=== PATIENT | female | born 1985 | race Caucasian/White ===

== ENCOUNTER 2016-06-04 09:04 | Inpatient (IN) ==
[2016-06-04 06:20] LABS: Basophils % 0.3 %; Eosinophils # 0.1 K/mcL (0.0-0.6); Eosinophils % 0.7 %; Hematocrit 37.3 % (35.3-44.9); Hemoglobin 12.4 g/dL (11.5-15.4); Lymphocytes # 2.1 K/mcL (0.6-4.6); Lymphocytes % 18.7 %; Mean Corpuscular HGB Conc 33.2 g/dL (31.6-35.5); Mean Corpuscular Hemoglobin 29.7 pg (28.0-33.3); Mean Corpuscular Volume 89.4 fL (83.0-100.0); Mean Platelet Volume 9.8 fL (9.4-12.4); Monocytes # 0.8 K/mcL (0.0-1.3); Platelet Count 230 K/mcL (140-400); Red Blood Count 4.17 M/mcL (3.82-4.97); Red Cell Distribution Width 12.5 % (11.5-14.5); Segmented Neutrophils % 72.3 %
[2016-06-04] MEDS: Ringers Solution, Lactated 1,000 ML IVC SCH ×2 (06:24→17:11)
--- NOTE | 2016-06-04 06:51 | Anesthesia Evaluation PreOp ---
Date of Encounter: 06/04/16 Time of Encounter: 06:48 - Past History Planned Operation: vaginal del, Cardiac History: Denies any Significant Hx Pulmonary History: Denies Any Significant HX [employer] History: Denies Any Significant HX Other Medical History: Denies Any Significant HX Anesthesia History: No Prior Anesthetic Complications, Past Anesthesia Alcohol Use: none Drug use: none Medications and Allergies Formula Tablet 1 tab PO DAILY 06/04/16 [History] Allergies No Known Allergies Allergy (Verified 02/12/15 13:55) Anesthesia Results - Labs 06/04/16 06:10 Anesthesia Exam - HEENT Pupil (Motor): Pupils equal Mallampati: II Teeth: Normal Oral Opening: Greater than 3 - [employer] LOC: Oriented [employer] Motor: Normal RUE, Normal LUE, Normal RLE, Normal LLE, Normal Face [employer] Sensory: Normal: RUE, LUE, RLE, LLE, Face - Cardiac Rhythm: Regular Murmur: None - Pulmonary Breath Sounds: bilateral Clear Respiratory Effort: Symmetrical Anesthesia Assess/Plan ASA Score: 2 Modified Raymond Scale for Level of Consciousness: Cooperative, oriented, and tranquil Anesthetic Plan: General, Regional Monitoring Plan: Standard Monitors
--- NOTE | 2016-06-04 07:25 | OB/GYN History & Physical ---
Date of Encounter: 06/04/16 Time of Encounter: 07:21 Assessment and Plan (1) Spontaneous onset of labor Current visit: Yes Status: Acute This morning around 7 AM the patient is dilated to 4-5 cm, 80% effaced at -1 station. Category 1. Plan is to allow for spontaneous labor. If there is no change within the next 2 hours we will plan to start Pitocin. Patient is okay for epidural. We will continue penicillin for GBS prophylaxis and anticipate vaginal delivery. History of Present Illness Chief complaint: Spontaneous Rupture of Membranes HPI: Ms. Arita is a 30 year old ,1,1 female here for spontaneous labor. She is 39 weeks 2 days along in her . She says her water broke around 4:30 this morning and there was a light brown tint to it. Her has been uncomplicated and and she has not been taking any medications. She is group B strep positive with no known drug allergies. She denies any current complaints Past Med Surg Social Fam HX - Past Medical History Medical history: no medical history Psychiatric history: anxiety - Past Surgical History Surgical History: no surgical history - Social History Smoking Status: Current every day smoker Packs per day: 0.5 Smokeless Tobacco Status: No Alcohol use: none Drug use: none - Family History Brother Age: 20 Living Status: Still Living Hx Family Cardiac Disorders: No Hx Family Respiratory Disorders: No Hx Family Cancer: No Hx Family GI Disorders: No Hx Family Genitourinary Disorders: No Hx Family Endocrine Disorder: No Hx Family Musculoskeletal Disorders: No Hx Family Neuromuscular Disorders: No Hx Family Neurologic Disorders: No Hx Family HEENT Disorders: No Hx Family Autoimmune Disorders: No Hx Family Reproductive Disorders: No Hx Family Medical Disorders: Yes (autism) Obstetrical History - Pregnancies : 3 Medications and Allergies Formula Tablet 1 tab PO DAILY 06/04/16 [History] Allergies No Known Allergies Allergy (Verified 02/12/15 13:55) Review of System OB - Constitutional Constitutional ROS IM: other (HEENT: Eyes: No visual loss, blurred vision, double vision or yellow sclerae. Ears, Nose, Throat: No hearing loss, sneezing, congestion, runny nose or sore throat. SKIN: No rash or itching. CARDIOVASCULAR : No chest pain, chest pressure or chest discomfort. No palpitations or edema. RESPIRATORY: No shortness of breath, cough or sputum. GASTROINTESTINAL: No anorexia, nausea, vomiting. GENITOURINARY: No urinary frequency, burning on urination, dysuria or hematuria. NEUROLOGICAL: No headache, dizziness, syncope, paralysis, ataxia, numbness or tingling in the extremities. HEMATOLOGIC: No anemia, bleeding or bruising. LYMPHATICS: No enlarged nodes or painful nodes.ENDOCRINOLOGIC: No reports of sweating, cold or heat intolerance. No polyuria or polydipsia.) Exam - Vital Signs Vital signs: Initial Vital Signs Temp Pulse Resp BP 98.4 F 58 16 123/66 06/04/16 05:45 06/04/16 05:45 06/04/16 05:45 06/04/16 05:45 - Comments Comments: GENERAL: Well-developed, well-nourished in no apparent distress. Patient is alert and oriented x3. HEENT: Head is normocephalic and atraumatic. Extraocular muscles are intact. HEART: S1 and S2 normal. Regular rate and rhythm. No murmurs , rub, or gallops. LUNGS: Clear to auscultation bilaterally. No wheezing, rales or rhonchi. ABDOMEN: Soft, nontender, and nondistended. Positive bowel sounds x4. No hepatosplenomegaly noted. MUSCULOSKELETAL: No deformities. No cyanosis, clubbing, edema in all the extremities. PERIPHERAL VASCULAR: pulses are 2/4 bilaterally. NEUROLOGIC: No motor or sensory deficits. No focal deficits. SKIN : No rashes, ulceration or induration present. Results Result Diagrams: 06/04/16 06:10 All other labs normal. - VTE Reasons for not Prescribing Prophylaxis: Treatment not Indicated - Low risk for VTE
[~2016-06-04 09:04] MED LIST: *HR* FentaNYL (PF) 100 MCG/2 ML VIAL ONE; Bupivacaine-MPF 0.25% 10 ML VIAL ONE; Epidural Premix (fent/bupiv) 110 ML EP ONE; Famotidine 20 MG/2 ML VIAL IVP PRN; Metoclopramide 10 MG/2 ML VIAL IVP PRN; Penicillin G Potassium 2,500,000 UNIT in D5% in Water 100 ML IVPB SCH; Penicillin G Potassium 5,000,000 UNIT in D5% in Water (Mini-Bag+) 100 ML IVPB ONE
[2016-06-04] MEDS ORDERED: *HR* FentaNYL (PF) 100 MCG/2 ML VIAL EP ONE (09:09)
[2016-06-04] MEDS ORDERED: Bupivacaine-MPF 0.25% 10 ML VIAL EP ONE (09:09)
--- NOTE | 2016-06-04 09:14 | Anesthesia Procedures ---
Date of Encounter: 06/04/16 Time of Encounter: 08:41 Procedures: Anesthesia - Epidural/Spinal Patient ID/Chart reviewed: Yes Patient examined: Yes OB Eval: Gestational age: 39 OB Eval: : 2 OB Eval: Hx Para: 1 OB Eval: Dilated at (cm): 6 OB Eval: Contractions: Non-stressed pattern Consent Obtained: Yes Supplemental Oxygen: None/Room Air Site Prep: Aseptic Technique, Sterile prep and drape, Povidone-Iodine 1% Patient position: upright Local Anesthetic: Lidocaine 1% Amount of Local Anesthetic used: 3 Touhy Needle Gauge: 18 Touhy Needle Depth (cm): 5 Catheter Depth at Skin (cm): 16 Test Dose (1.5% Lido + Epi): Volume given (mls): 3 Test Dose Result: Negative Loading Dose: 0.25% Marcaine (mls): 8 Loading Dose: Fentanyl (mcg): 100 Loading Dose Administered: Thru Catheter Infusion Med: 0.125% Bupivacaine w/ 2 mcg/ml Fentanyl Infusion Rate (mls/hr): [address]: Tegaderm, Tape Interspace Used: L3-L4 Loss of Resistance (ROSMERY): Yes Blood: No CSF: No Paresthesia: No Vitals + FHT's: 3 Vital Signs Time 0845 0850 0900 0905 0910 BP 107/70 104/70 103/72 115/74 111/77 Pulse 105 99 96 95 87 FHTs 140 140 140 140 140
[2016-06-04] MEDS ORDERED: Epidural Premix (fent/bupiv) 110 ML EP SCH (09:15)
[2016-06-04] MEDS ORDERED: Oxytocin 20 units/ LR 1000 mL 20 UNIT/1,000 ML BAG IVC SCH (11:00)
--- NOTE | 2016-06-04 11:43 | OB Labor Progress Note ---
Date of Encounter: 06/04/16 Time of Encounter: 09:50 Labor Progress Note - Subjective Subjective: Patient comfortable with epidural. - Vital Signs Vital Signs: Afebrile, vital signs stable - Cervix Cervix: 6/80/-2 with bulging bag, vertex presentation - Heart Tones Heart Tones: 120s, CAT 1 - [place]: Irregular contractions - Interventions Interventions: 39 week IUP with spontaneous rupture of membranes, thin meconium stained amniotic fluid. No significant cervical exchange operator several hours - Plan Plan: Amniotomy of forebag, thin dark bloody fluid seen. IUPC placed. Augmentation as indicated
[2016-06-04] MEDS ORDERED: Bupivacaine-MPF 0.25% 10 ML VIAL ONE (13:12)
[2016-06-04] MEDS ORDERED: *HR* FentaNYL (PF) 100 MCG/2 ML VIAL ONE (13:12)
--- NOTE | 2016-06-04 13:27 | Anesthesia Progress Note ---
Date of Encounter: 06/04/16 Time of Encounter: 13:15 Anesthesia Note - Note Note: 06/04/16 13:25 called to LDR9 for return of pain with contractions. No evidence of epidural migration. No csf or blood on aspiration. Dosed with 100mcg fentanyl and 8ml 0.25% bupivacaine in 3 divided doses. Patient tolerated procedure well and vs remained stable.
[2016-06-04] MEDS ORDERED: Lidocaine/EPI 1:100k 1% 30 ML VIAL ONE (14:39)
--- NOTE | 2016-06-04 15:17 | OB/GYN Procedure Note ---
Delivery - Delivery Date: 06/04/16 Provider: Charis Monteiro Intrapartum events: meconium Delivery induction: none Delivery augmentation: rupture of membranes, pitocin Delivery monitor: external FHT, external uterine, internal uterine Anesthesia: epidural Estimated Blood Loss: 200 - (s) Infant A Infant Delivery Date: 06/04/16 Delivery Time: 14:40 Presentation: vertex Position: KRISTINA Route of delivery: Gender: Female Viability: Viable Pounds: 7 Ounces: 2 at 1 minute: 8 at 5 mins: 9 Shoulder Dystocia: not encountered Specimens collected: cord blood Placenta: spontaneous, uterine exploration Cord: nuchal cord, 3 umbilical vessels, nuchal reduced - Repair Episiotomy: none Laceration Description: Labial (right, hemostatic and unrepaired) - Complications Delivery complications: none Delivery comments: The patient was complete and pushing with a spontaneous vaginal delivery in the KRISTINA position of a vigorous female infant weighing 7 lbs. 2 oz. with Apgars of 8 at 1 minute and 9 at 5 minutes. There was a nuchal cord which was reduced on the perineum after the was bulb suctioned. The infant was placed on the maternal abdomen with nursery and respiratory in place. The cord was clamped cut and the was handed to the nursing care team. Cord blood was obtained. Placenta was delivered spontaneous and intact. There was a right superficial labial laceration which was hemostatic and not repaired per patient request. No other lacerations noted. The uterus was explored and there were no retained products of conception. Estimated blood loss 200 mL's. Complications none - Disposition Mom disposition: stable in LDR [place] disposition: stable in LDR
[2016-06-04] MEDS ORDERED: Oxytocin 20 units/ LR 1000 mL 20 UNIT/1,000 ML BAG IVC ONE (16:07)
[2016-06-04] MEDS ORDERED: Oxytocin 20 units/ LR 1000 mL 20 UNIT/1,000 ML BAG IV SCH (16:07)
[2016-06-04] MEDS ORDERED: Measles/Mumps/Rubella Vacc 0.5 ML VIAL SQ PRN (16:07)
[2016-06-04] MEDS ORDERED: Lanolin 7 G OINT...G. TP PRN (16:07)
[2016-06-04] MEDS ORDERED: Ibuprofen 600 MG TABLET PO PRN (16:07)
[2016-06-04] MEDS ORDERED: Benzocaine/Menthol 56 GM AEROSOL SPRAY TP PRN (16:07)
[2016-06-04] MEDS ORDERED: Acetaminophen 325 MG TABLET PO PRN (16:07)
[2016-06-05 04:37] LABS: Basophils % 0.3 %; Eosinophils # 0.1 K/mcL (0.0-0.6); Eosinophils % 0.9 %; Hematocrit 37.4 % (35.3-44.9); Hemoglobin 12.3 g/dL (11.5-15.4); Immature Granulocytes % 0.7 % (0-4); Lymphocytes # 2.9 K/mcL (0.6-4.6); Lymphocytes % 18.9 %; Mean Corpuscular HGB Conc 32.9 g/dL (31.6-35.5); Mean Corpuscular Hemoglobin 29.6 pg (28.0-33.3); Mean Corpuscular Volume 90.1 fL (83.0-100.0); Monocytes % 6.7 %; Neutrophils # 10.9 K/mcL (1.6-8.9); Platelet Count 209 K/mcL (140-400); Red Blood Count 4.15 M/mcL (3.82-4.97); Red Cell Distribution Width 12.5 % (11.5-14.5); Segmented Neutrophils % 72.5 %
[2016-06-05 07:43] VITALS: BP 108/66
--- NOTE | 2016-06-05 08:37 | Discharge Summary ---
Date of Encounter: 06/05/16 Time of Encounter: 08:34 - Discharge Diagnosis (1) Vaginal delivery Priority: Primary Status: Acute Comments: Pt meeting milestones. - Discharge Medications Prescriptions: Ibuprofen [Motrin] 600 mg PO Q6HR PRN #60 tablet PRN Reason: Cramping Docusate [Colace] 100 mg PO BID #60 capsule Home Medications: Formula Tablet 1 tab PO DAILY 06/04/16 [History] Benzocaine/Menthol [place] [Dermoplast [place]] 1 appl TP QID PRN #0 aerosol [Rx] Docusate [Colace] 100 mg PO BID #60 capsule 06/05/16 [Rx] Ibuprofen [Motrin] 600 mg PO Q6HR PRN #60 tablet 06/05/16 [Rx] Lanolin [Lansinoh] 1 appl TP Q4HR PRN #0 oint...g. 06/05/16 [Rx] Allergies/Adverse Reactions: Allergies No Known Allergies Allergy (Verified 02/12/15 13:55) Data Procedures and tests throughout hospitalization: Laboratory Tests 06/04/16 06/05/16 06:10 04:10 WBC 11.1 15.1 H RBC 4.17 4.15 Hgb 12.4 12.3 Hct 37.3 37.4 MCV 89.4 90.1 MCH 29.7 29.6 MCHC 33.2 32.9 RDW 12.5 12.5 Plt Count 230 209 MPV 9.8 10.0 Immature Gran % 1.0 0.7 Seg Neutrophils % 72.3 72.5 Lymphocytes % 18.7 18.9 Monocytes % 7.0 6.7 Eosinophils % 0.7 0.9 Basophils % 0.3 0.3 Neutrophils # 8.0 10.9 H Lymphocytes # 2.1 2.9 Monocytes # 0.8 1.0 Eosinophils # 0.1 0.1 Basophils # 0.0 0.0 Labs on day of discharge: Labs from last 24 hours 06/05/16 04:10 WBC 15.1 H RBC 4.15 Hgb 12.3 Hct 37.4 MCV 90.1 MCH 29.6 MCHC 32.9 RDW 12.5 Plt Count 209 MPV 10.0 Immature Gran % 0.7 Seg Neutrophils % 72.5 Lymphocytes % 18.9 Monocytes % 6.7 Eosinophils % 0.9 Basophils % 0.3 Neutrophils # 10.9 H Lymphocytes # 2.9 Monocytes # 1.0 Eosinophils # 0.1 Basophils # 0.0 Date of admission: 06/04/16 09:04 Primary care physician: Marilou French Consults: 06/04/16 16:07 Consult to Program Management Manager [CONS] Routine Comment: Vaginal delivery, consult needed Discharging clinician: Penelope Logan Anticipated date of discharge: 06/05/16 - Patient Status Disposition: Home, Self-Care Condition: Good Functional capacity at discharge: independent ambulation Overall status at discharge: patient is progressing back to baseline - Discharge Instructions Follow Up With: Marilou French MD [Primary Care Provider] - Alberto Lyles MD [Partnered Physician] - - Diet and Activity Activity: increase activity as tolerated Diet: advance to your usual diet Hospital Course Reason for admission: active labor Delivery: Episiotomy: none Laceration: other (labial) Other procedures: none complications: none Discharge diagnosis: IUP at term delivered baby: female Hospital course: - Delivery Date: 06/04/16 Provider: Charis Monteiro Intrapartum events: meconium Delivery induction: none Delivery augmentation: rupture of membranes, pitocin Delivery monitor: external FHT, external uterine, internal uterine Anesthesia: epidural Estimated Blood Loss: 200 - (s) Infant A Delivery Date: 06/04/16 Delivery Time: 14:40 Presentation: vertex Position: KRISTINA Route of delivery: Gender: Female Viability: Viable Pounds: 7 Ounces: 2 at 1 minute: 8 at 5 mins: 9 Shoulder Dystocia: not encountered Specimens collected: cord blood Placenta: spontaneous, uterine exploration Cord: nuchal cord, 3 umbilical vessels, nuchal reduced - Repair Episiotomy: none Laceration Description: Labial (right, hemostatic and unrepaired) - Complications Delivery complications: none - Disposition Mom disposition: home PPD#1 disposition: home with mother, bottle feeding Time Attestation: Total time spent providing and/or coordinating discharge services: Time Spent: Less than 30 minutes Exam - Constitutional Vitals: Temp Pulse Resp BP Pulse Ox 98.1 F 86 24 108/66 98 06/05/16 07:41 06/05/16 07:41 06/05/16 07:41 06/05/16 07:41 06/05/16 07:41 General appearance IM: A&O X 3, pleasant, no acute distress - Respiratory Respiratory exam: Present: CTAB - Cardiovascular Cardiovascular exam IM: Present: RRR - GI/Abdominal GI/Abdominal exam IM: soft - Rectal Rectal exam: deferred - Uterine Tone: Firm Uterus Position: 1 Finger Below Umbilicus - Extremities Exam Extremities exam IM: Present: normal inspection - Neurological Exam Neurological exam: normal gait, oriented X3 - Psychiatric Additional comments: reports good mood
[2016-06-05] MEDS ORDERED: Prenatal Vit/FA 1 EACH TABLET PO SCH (09:00)
== END 2016-06-05 16:00 | disposition home or self-care (01) | DRG 560 ==
LOC: 1NENULAB → 1NENUOBS 17:02
PROVIDERS: ADMIT Student in an Organized Health Care Education/Training Program; ATTEND Student in an Organized Health Care Education/Training Program

== ENCOUNTER 2019-08-14 14:34 | Inpatient (IN) ==
[~2019-08-14 14:34] MED LIST changes: +*HR* FentaNYL (PF) 100 MCG/2 ML VIAL IVP PRN; -*HR* FentaNYL (PF) 100 MCG/2 ML VIAL ONE; +Azithromycin 500 MG in 0.9 % Sodium Chloride 250 ML IVPB ONE; -Bupivacaine-MPF 0.25% 10 ML VIAL ONE; -Epidural Premix (fent/bupiv) 110 ML EP ONE; +Lidocaine 1% 20 ML MDV INFILT PRN; +Naloxone 0.4 MG/ML INJ IVP PRN; +Ondansetron 4 MG/2 ML VIAL IVP PRN; -Penicillin G Potassium 2,500,000 UNIT in D5% in Water 100 ML IVPB SCH; -Penicillin G Potassium 5,000,000 UNIT in D5% in Water (Mini-Bag+) 100 ML IVPB ONE
[2019-08-14] MEDS ORDERED: Penicillin G Potassium 5,000,000 UNIT in 0.9 % Sodium Chloride Mini Bag 100 ML IVPB ONE (14:38)
[2019-08-14] MEDS: Ringers Solution, Lactated 1,000 ML IVC SCH ×3 (14:57→22:03)
[2019-08-14 15:05] LABS: Basophils % 0.3 %; Eosinophils % 0.2 %; Hematocrit 38.4 % (35.3-44.9); Hemoglobin 12.8 g/dL (11.5-15.4); Immature Granulocytes % 0.6 % (0-4); Lymphocytes # 1.6 K/mcL (0.6-4.6); Lymphocytes % 15.2 %; Mean Corpuscular HGB Conc 33.3 g/dL (31.6-35.5); Mean Corpuscular Hemoglobin 30.8 pg (28.0-33.3); Mean Corpuscular Volume 92.3 fL (83.0-100.0); Mean Platelet Volume 10.5 fL (9.4-12.4); Monocytes # 0.6 K/mcL (0.0-1.3); Monocytes % 5.5 %; Neutrophils # 8.3 K/mcL (1.6-8.9); Platelet Count 181 K/mcL (140-400); Red Blood Count 4.16 M/mcL (3.82-4.97); Red Cell Distribution Width 12.5 % (11.5-14.5); Segmented Neutrophils % 78.2 %; White Blood Count 10.7 K/mcL (4.3-11.1)
[2019-08-14 15:18] LABS: Amphetamine Screen,Urine Negative ng/mL (Cutoff=1000); Barbiturate Screen,Urine Negative ng/mL (Cutoff=200); Benzodiazepines Screen,Urine Negative ng/mL (Cutoff=200); Cannabinoid Screen,Urine Positive ng/mL (Cutoff = 50); Cocaine Screen,Urine Negative ng/mL (Cutoff= 300); Opiate Screen,Urine Negative ng/mL (Cutoff=300); Phencyclidine Screen,Urine Negative ng/mL (Cutoff=25)
[2019-08-14] MEDS ORDERED: EPHEDrine 50 MG/ML VIAL IVP PRN (15:45)
[2019-08-14] MEDS: Epidural Premix (fent/bupiv) 110 ML EP SCH ×2 (16:11→21:56)
[2019-08-14] MEDS ORDERED: Oxytocin 20 units/ LR 1000 mL 20 UNIT/1,000 ML BAG IVC ONE (16:55)
[2019-08-14] MEDS ORDERED: Oxytocin 20 units/ LR 1000 mL 20 UNIT/1,000 ML BAG IVC SCH (17:15)
[2019-08-14] MEDS: Penicillin G Potassium 2,500,000 UNIT in 0.9 % Sodium Chloride 100 ML IVPB SCH ×2 (18:59→23:32)
[2019-08-15] MEDS: Epidural Premix (fent/bupiv) 110 ML EP SCH (03:09)
[2019-08-15] MEDS: Penicillin G Potassium 2,500,000 UNIT in 0.9 % Sodium Chloride 100 ML IVPB SCH (03:10)
[2019-08-15] MEDS ORDERED: Oxytocin 20 units/ LR 1000 mL 20 UNIT/1,000 ML BAG IVC ONE (08:57)
[2019-08-15] MEDS ORDERED: Benzocaine/Menthol 56 GM AEROSOL SPRAY TP PRN (09:19)
[2019-08-15] MEDS ORDERED: Lanolin 7 G OINT...G. TP PRN (09:19)
[2019-08-15] MEDS ORDERED: Oxytocin 20 units/ LR 1000 mL 20 UNIT/1,000 ML BAG IVC SCH (09:19)
[2019-08-15] MEDS ORDERED: Rho Immune Globulin 1,500 UNIT SYRINGE IM PRN (09:19)
[2019-08-15] MEDS: FLUoxetine HCl 10 MG CAPSULE PO SCH (09:55)
[2019-08-15] MEDS: Prenatal Vit/FA 1 EACH TABLET PO SCH (09:55)
[2019-08-15] MEDS: Ibuprofen 600 MG TABLET PO SCH ×2 (16:17→21:22)
[2019-08-15] MEDS: Acetaminophen 325 MG TABLET PO SCH ×2 (16:17→23:04)
[2019-08-16] MEDS: Ibuprofen 600 MG TABLET PO SCH ×2 (04:55→11:10)
[2019-08-16] MEDS: Acetaminophen 325 MG TABLET PO SCH ×2 (04:57→11:11)
[2019-08-16] MEDS: Prenatal Vit/FA 1 EACH TABLET PO SCH (08:00)
[2019-08-16] MEDS: FLUoxetine HCl 10 MG CAPSULE PO SCH (08:01)
[2019-08-17 07:40] VITALS: BP 123/60
== END 2019-08-16 11:20 | disposition home or self-care (01) | DRG 560 ==
LOC: 1NENULAB → 1NENUOBS 08-15 09:19
PROVIDERS: ADMIT Obstetrics & Gynecology; ATTEND Obstetrics & Gynecology